=== PATIENT | female | born 1940 | race African-American/Black ===

== ENCOUNTER → 2018-03-24 | Outpatient (CLI) | payer OTHER, MEDICARE ==
[~2018-03-24] VITALS: Ht 152.4 cm; Wt 61.2 kg
[~2018-03-24] MED LIST: ACETAMINOPHEN325 M1 PO; ALPRAZOLAM 0.0.25 M1 PO; AMBEREN; AMLODIPINE BESY10 MG; AMLODIPINE BESY10 MG PO; ATENOLOL 50 MG50 M1; ATENOLOL 50 MG50 M1 PO; CAL-MAG TABLET1 EACH; CALCIUM-MAGNES1 EAC5 PO; CHILDREN'S ASPI81 M1 PO; COLCHICINE 0.60.6 M1; COLCHICINE 0.60.6 M1 PO; COLCHICINE 0.60.6 M2; DESYREL50 MG; DESYREL50 MG PO; DURAGESIC1 EAC1 TRANSDERM; ENALAPRIL MALEA20 MG; ENALAPRIL MALEA20 MG PO; FERRO-TIME325 MG PO; FERROUS GLUCON325 M4; FISH OIL 1,001000 MG; FISH OIL 1,2001 EAC3 PO; FISHOIL PO; FLEXERIL PO; FOLIC ACID; FOLIC ACID 40400 MC1 PO; FOSAMAX 70 MG T70 MG PO; GABAPENTIN 100100 MG PO; GEMFIBROZIL 60600 MG; GEMFIBROZIL 60600 MG PO; HYDROCODON-ACE1 EACH PO; HYDROXYZINE HCL25 M1; HYDROXYZINE HCL25 M1 PO; KLONOPIN0.5 MG PO; KLOR-CON 1010 MEQ PO; LEVOTHROID; LEVOTHROID PO; LORTAB 5 MG/5001 TA1 PO; LUTEIN20 MG; LUTEIN20 MG PO; LYRICA 50 MG50 MG PO; MILLIPRED DP5 MG; NORTRIPTYLINE H25 M3 PO; ODORLESS GARLI500 MG; ODORLESS GARLI500 MG PO; OSTEO BIFLEX PO; OXYCODONE-ACET1 EAC2 PO; PERCOCET 10-321 EACH PO; PLAVIX 75 MG TA75 M1 PO; POTASSIUM; POTASSIUM GLUCONATE PO; PREDNISONE 5 MG5 M1 PO; PROBENECID500 MG; PROBENECID500 MG PO; QUININE PO; ROXICODONE15 M1 PO; TUMS PO; VITAMIN C + RO500 MG; VITAMIN D1000 UNI1 PO; VITAMIN D400 UNI1; VITAMIN E400 UNIT PO; VITAMINC500 PO; XANAX 0.25 MG0.25 MG; [UNRECOGNIZED DRUG - OTHER] PO
--- NOTE | ~2018-03-24 | CRIT ---
[facility] [place] [address] CRITICAL CARE NOTE Name: HENRY ROMERO DECEMBER Room #: REG FILIBERTO Toro.Jinny.#: [id number] Admission: 03/24/18 Attend Phys: Matt Velazquez MD Discharge: Date of : 36 Report #: [id number] THIS REPORT FOR: //name// CC: Darrel Velazqeuz DATE OF SERVICE: 03/24/2018 HISTORY OF PRESENT ILLNESS: The patient is now at [facility]. She was seen previously at [facility]. She has spoken with the neurosurgeons and they have recommended to her that she consider spinal cord stimulation. She is here today to discuss the procedure, potential benefits, risks and complications. The patient has significant kyphoscoliosis. She has had 2 previous lumbar surgeries and has had kyphoplasty. In addition, she suffers from comorbidities of coronary artery disease and has 2 stents placed and has undergone angioplasty as recently as 2018. She complains of daily pain that is extremely severe, 9/10, sharp, stabbing, burning, cramping, radiating through her mid back and then into her legs. She states that the worst pain that she has is the inner legs and her anterior thighs and she has difficulty with any movement or standing. It is alleviated by forward bending and she has taken some medication with modest relief. She has had epidural injections performed with also limited improvement. MEDICATIONS: Reviewed and reconciled. She is on a number of centrally acting medications, which is concerning for age including oxycodone 1 tablet every 4-6 hours, Lyrica, nortriptyline, gabapentin, clonazepam, alprazolam in addition to her many other medications for coronary artery disease and other conditions. One hope is that she will be able to taper off of some of her pain medications if an interventional technique is achieved. REVIEW OF SYSTEMS: Positive for blurred vision, shortness of breath, loss of appetite, weight loss, kidney stones, numbness, tingling and pain in the lower extremities, nervousness and anxiety. PHYSICAL EXAMINATION: NEUROMUSCULOSKELETAL: The patient is alert and oriented. She has a walker with her today. She is at fall risk. She moves from standing position and there is a marked kyphoscoliotic spine. She is able to ambulate but is nearly bent over. Her spine has levoscoliosis with rotation. There is tenderness across the entire spine from mid scapular region all the way down through the lumbosacral region. Straight leg raising is positive bilaterally, reproducing pain in the anterior thigh. [address] [address] CRITICAL CARE NOTE Name: HENRY ROMERO DECEMBER Room #: REG [facility].R.#: [id number] Admission: 03/24/18 Attend Phys: Matt Velazquez MD Discharge: Date of : 36 Report #: [id number] CHEST: Clear. CARDIAC: Rhythm is regular. ABDOMEN: Soft. IMPRESSION: 1. Intractable low back pain with marked kyphoscoliosis. 2. Lumbar radiculopathy, bilateral L4-L5 distribution. 3. Coronary artery disease. 4. Peripheral vascular disease. RECOMMENDATIONS: I think she is only a fair candidate for spinal cord stimulation. I also would be reluctant to place an intrathecal pump. I have talked to the patient and her daughter about possibly continuing with medication, which would be the most flexible and least complicated route to manage her chronic pain. I have explained that even in the best circumstances even implantable devices such as intrathecal pumps and spinal cord stimulators provide only partial relief and may not treat all of the pain that she has. She should not create too much hope or expectation that by simply performing an implantable device surgery that her life will be markedly altered. I have allowed that there are some patients who have had remarkable improvement following placement of spinal cord stimulation and have been able to taper off of medications, one of her goals. We will proceed with the preauthorization process. Because of her spinal rotational deformity, placement of a trial lead may even be challenging. Once we have received preauthorization, I will proceed with placement of a trial lead and we will see how she responds. Risks of lead placement included failure to position the lead properly, spinal fluid leak, worsening of pain, bleeding and other complications. She was given information regarding the Cardiac Conceptsis system, which is the smallest IPG currently on the market, which will allow for high frequencies above 1000 Hz as well as lower frequencies. It is an MRI safe and compatible system as well. Followup visit is planned in the Pain Clinic for a trial once we have received preauthorization. By: [id number] Matt Velazquez MD /nt
[2018-03-24 13:22] VITALS: BP 127/55
== END ==
LOC: PAIN 06:17
DX: M41.86 Other forms of scoliosis, lumbar region (principal); M54.16 Radiculopathy, lumbar region; I25.10 Atherosclerotic heart disease of native coronary artery without angina pectoris; I73.9 Peripheral vascular disease, unspecified

== ENCOUNTER → 2018-08-19 | Outpatient (CLI) | payer OTHER, MEDICARE ==
[~2018-08-19] VITALS: Ht 147.3 cm; Wt 59.4 kg
[~2018-08-19] MED LIST changes: +FENTANYL1 EAC2 TRANSDERM
--- NOTE | ~2018-08-19 | HPC ---
[facility] [address] [place] [address] PAIN MANAGEMENT CONSULTATION Name: HENRY ROMERO Room #: REG [facility] M..#: [id number] Admission: 08/19/18 Attend Phys: Matt Velazquez MD Discharge: Date of : 38 Report #: [id number] THIS REPORT FOR: //name// CC: Brennen Greco MD DATE OF SERVICE: 08/19/2018 CHIEF COMPLAINT: Low back pain with radiation into both legs. HISTORY OF PRESENT ILLNESS: The patient is here today with her niece. We tried to place a spinal cord stimulator lead without success in April due to her marked degenerative disease. She was placed on medication. There was some confusion about the orders. We were very clear and written orders were given to stop her Lyrica and gabapentin, but she continued them while on fentanyl. This led to some dizziness, lightheadedness and probably overmedication. She stopped the fentanyl patches. She says that she stopped the gabapentin, but on her PDMP, it shows that she just recently was delivered 270 gabapentin 300 mg tablets. I have given her instructions again on backing off on these medicines due to the dizziness that she experiences, but it is hard to know how much of the information, both verbal and written that we provide for her in the office makes it to home and with her followup. Today, she complains of pain mostly down both legs. It follows the posterior lateral aspect of legs and she has pain across the lumbosacral segment as well. She has complaints of pain mostly in the back during the exam. She has a history of kyphoscoliosis and has been treated with kyphoplasty at L1-L2, I believe. PQRS REVIEW: 1. Positive for osteoarthritis of the hips, knees and shoulders. She has spondylosis as well. 2. Her BMI is 27.4. 3. VITAL SIGNS: Blood pressure 138/57, heart rate 69. 4. Pain intensity 9/10 on verbal scale. 5. She is, in my opinion a fall risk, although she reports that she has not fallen in the last 3 months and does not need help standing or walking. 6. She is on no blood thinners. 7. History of hypertension, under treatment by primary care physician, Dr. Brennen Madrigal. All medications have been reviewed and reconciled. 8. Opioid agreement, no. 9. She is considered low risk for addiction. 10. Functional assessment tool is high at 60/70, suggesting much of her [facility] [address] [place] [address] PAIN MANAGEMENT CONSULTATION Name: HENRY ROMERO Room #: REG [facility]#: [id number] Admission: 08/19/18 Attend Phys: Matt Velazquez MD Discharge: Date of : 38 Report #: [id number] activity is affected by pain. 11. She is a former tobacco user. Does not smoke at this time. Drinks about half a beer every day! PHYSICAL EXAMINATION: GENERAL: This is a feisty 78-year-old female. MUSCULOSKELETAL: She is indeed able to move from sitting to standing, walks with a broad-based gait. She has pain across the lumbosacral segment and groans and moans when you palpate across the area of the lumbosacral region. Straight leg raising is positive for pain radiating down the posterior aspect of both legs. Generalized weakness is noted in the lower extremities. IMPRESSION: 1. Chronic intractable low back pain with radiculopathy. 2. Failure of spinal cord stimulation trial. 3. Marked kyphoscoliosis. 4. Coronary artery disease. 5. Peripheral vascular disease. 6. Management of high-risk medications. PLAN: I would like to avoid any additional medication. I am just not certain how she will take it and I am worried about a fall for this is 78-year-old female with a history of osteoporotic compression fractures. An epidural steroid injection was offered and reviewed the risks and benefits. She is anxious to proceed. PROCEDURE: She was taken to the fluoroscopic suite for the treatment. She was placed prone. She was anesthetized over L4-L5 and a 22-gauge needle advanced at first attempt in the epidural space with loss of resistance technique. There was no blood or CSF aspirated. One mL of Omnipaque injected. Good spread of dye observed into the epidural space, followed by 3 mL of 0.5% lidocaine. She tolerated the procedure well and was taken to the recovery room and reported a pain score of 0 at discharge. Followup visit in the future as needed for further injections. By: [id number] Matt Velazquez MD /nt
[2018-08-19 10:54] VITALS: BP 138/57
== END | disposition home or self-care (01) ==
LOC: PAIN 10:28
DX: M54.16 Radiculopathy, lumbar region (principal); G89.29 Other chronic pain; M96.1 Postlaminectomy syndrome, not elsewhere classified; M19.90 Unspecified osteoarthritis, unspecified site; I10 Essential (primary) hypertension; I25.10 Atherosclerotic heart disease of native coronary artery without angina pectoris; I73.9 Peripheral vascular disease, unspecified; Z79.891 Long term (current) use of opiate analgesic; Z87.891 Personal history of nicotine dependence; Z87.19 Personal history of other diseases of the digestive system; Z79.82 Long term (current) use of aspirin

== ENCOUNTER → 2019-01-12 | Outpatient (CLI) | payer OTHER, MEDICARE ==
[~2019-01-12] VITALS: Ht 147.3 cm; Wt 53.6 kg
[~2019-01-12] MED LIST changes: +OXYCODONE-ACET1 EACH PO
[2019-01-12 11:10] VITALS: BP 164/79
--- NOTE | 2019-01-12 11:45 | NUR ---
Pain Clinic Assessment: 1. History of Osteoarthritis: back all over History of Rheumatoid Arthritis: none 2. Height: 4 ft. 10 in. 147.3 cm. Weight: 118.2 lb. oz. 53.615 kg. Patient's BMI: 24.7 3. Vital Signs: BP: 164/79 Pulse: 83 Resp: 14 Temp: 02 Sat: 99 ECG Mon: 4. Pain Intensity: 8 5. Fall Risk: Dizziness: N Needs help standing or walking: Y Fallen in the last 3 months: N Fall risk comments: 6. Patient on Blood Thinner: None 7. History of Hypertension: Y 8. Opioid Therapy greater than 6 weeks: N Opiate Contract Signed: 9. Risk Assessment Tool Provided: low risk 10. Functional Assessment Tool: 60/70 11. Recreational Drug Use: Never Drug Type: Tobacco Use: Former Smoker Tobacco Type: Amount or Packs/day: How Many Years: Alcohol Use: Yes Frequency: Quant:
== END | disposition home or self-care (01) ==
LOC: PAIN 06:53
DX: M54.16 Radiculopathy, lumbar region (principal); G89.29 Other chronic pain; Z87.891 Personal history of nicotine dependence; Z88.0 Allergy status to penicillin; Z88.8 Allergy status to other drugs, medicaments and biological substances; Z79.899 Other long term (current) drug therapy; Z98.890 Other specified postprocedural states

== ENCOUNTER → 2019-04-06 | Outpatient (CLI) | payer OTHER ==
[~2019-04-06] VITALS: Ht 147.3 cm; Wt 51.7 kg
[2019-04-06 13:42] VITALS: BP 181/91
--- NOTE | 2019-04-06 14:13 | NUR ---
Pain Clinic Assessment: 1. History of Osteoarthritis: back all over History of Rheumatoid Arthritis: none 2. Height: 4 ft. 10 in. 147.3 cm. Weight: 114.0 lb. oz. 51.710 kg. Patient's BMI: 23.8 3. Vital Signs: BP: 181/91 Pulse: 71 Resp: 14 Temp: 02 Sat: 100 ECG Mon: 4. Pain Intensity: 10 5. Fall Risk: Dizziness: N Needs help standing or walking: Y Fallen in the last 3 months: N Fall risk comments: 6. Patient on Blood Thinner: None 7. History of Hypertension: Y 8. Opioid Therapy greater than 6 weeks: N Opiate Contract Signed: 9. Risk Assessment Tool Provided: low risk 10. Functional Assessment Tool: 60/70 11. Recreational Drug Use: Never Drug Type: Tobacco Use: Former Smoker Tobacco Type: Amount or Packs/day: How Many Years: Alcohol Use: Yes Frequency: Quant:
--- NOTE | 2019-04-13 16:33 | HPC ---
[facility] [place] [address] PAIN MANAGEMENT CONSULTATION Name: HENRY ROMERO Room #: REG FILIBERTO Admission: 04/06/19 Attend Phys: Matt Velazquez MD Discharge: Date of : 38 Report #: [id number] THIS REPORT FOR: //name// CC: Brennen Velazquez DATE OF SERVICE: 04/06/2019 Followup visit for severe degenerative spine disease, scoliosis, kyphosis, lumbar radiculopathy and intractable pain. The patient is here today with family member. She reports pain is severe with all activities, walking and standing. She has had only minimal relief from oxycodone, gabapentin. Injections have not been helpful. We have added antidepressant, nortriptyline, going outside of the Beers recommendations because of her misery. She has not responded favorably to this medication either. She failed the spinal cord stimulator trial. We were unable to enter the spine to place the leads. PQRS REVIEW: 1. History of diffuse osteoarthritis and spondylosis of the lumbar spine. 2. BMI 24.7. 3. Vital signs; 164/79, heart rate 83, respirations 14. 4. Pain intensity 8/10. 5. She is a fall risk. She needs help standing and walking. She walks, bent over at the waist. 6. She is on no blood thinners. 7. She has a history of hypertension, under treatment. All medications were reviewed and reconciled. 8. She is on opioid medications and has signed an opioid agreement. We reviewed the terms of that agreement and the importance of safeguarding all medications. 9. She is considered at low risk for addiction by the opioid risk tool. 10. Functional assessment tool 60/70 suggesting that her ability to function with her pain is quite low. 11. She denies use of tobacco, but still does drink alcohol on occasion in a social setting. She does not drink heavily, but uses it in some ways as medication. PHYSICAL EXAMINATION: VITAL SIGNS: As noted above. She is pleasant, but complains bitterly of pain. She can move from sitting to standing position, but her spine is markedly deformed with curvature and rotation throughout the thoracolumbar region. She has tenderness throughout her mid back and lower back. The majority of her [address] [address] PAIN MANAGEMENT CONSULTATION Name: HENRY ROMERO Room #: REG [facility].#: [id number] Admission: 04/06/19 Attend Phys: Matt Velazquez MD Discharge: Date of : 38 Report #: [id number] kyphotic changes are in the upper lumbar region where she has had compression fractures treated by kyphoplasty. She is able to walk with walker and assistance. Her gait is markedly antalgic. She has bilateral straight leg raising discomfort. CARDIOVASCULAR: Cardiac rhythm is regular with no audible murmur. PULMONARY: Chest is clear to auscultation. IMPRESSION: Chronic low back pain due to marked degenerative changes of the lumbar spine. Multiple compression fractures. Multiple levels of stenosis and neural foraminal narrowing. RECOMMENDATIONS: I do not believe that she is a good candidate for additional injections. She has failed nearly every procedure we have attempted. We have tried medication management and I would like to transition her to Butrans initiating 5 mcg patches q.7 days. There are numerous reasons why Butrans may be an effective medication to use in an elderly population and I have decided an excellent article to the patient and her niece from that July issue of supportive oncology in 2011. This outlines reasons for considering buprenorphine is a frontline analgesic in the management of pain. We will follow up hopefully we can get this covered. Followup visit planned by phone. If she is doing well at this dose, I will allow her daughter to come pick that up. <ELECTRONICALLY SIGNED> By: Matt Velazquez MD 04/13/19 1633 [id number] [id number] Matt Velazquez MD /nt
== END ==
LOC: PAIN 07:00
DX: M47.26 Other spondylosis with radiculopathy, lumbar region (principal); M41.86 Other forms of scoliosis, lumbar region; M51.16 Intervertebral disc disorders with radiculopathy, lumbar region; M48.062 Spinal stenosis, lumbar region with neurogenic claudication

== ENCOUNTER → 2019-05-08 | Outpatient (CLI) | payer OTHER ==
[~2019-05-08] VITALS: Ht 147.3 cm; Wt 50.2 kg
[~2019-05-08] MED LIST changes: +CYCLOBENZAPRINE5 MG PO
--- NOTE | ~2019-05-08 | HPC ---
[facility] [place] [address] [place] [address] PAIN MANAGEMENT CONSULTATION Name: HENRY ROMERO Room #: REG FILIBERTO Lawanda.#: [id number] Admission: 05/08/19 ������������������ Attend Phys: Matt Velazquez MD Discharge: ������������������ Date of : 38 Report #: [id number] THIS REPORT FOR: //name// CC: KUN Velazquez DATE OF SERVICE: 05/08/2019 Followup visit for severe degenerative spine disease with scoliosis and intractable pain. The patient is here today in the pain clinic for an epidural injection. She continues to report severe daily pain that radiates from her low back through her flank and into her legs. She has difficulty with walking and ambulation. She has been on Butrans patches, but does not feel that they have been helpful. She will continue to follow up with Dr. Madrigal. PHYSICAL EXAMINATION: Blood pressure is 131/63, heart rate 70, respirations 14. She sits in a chair, bending over at the waist. She has difficulty with sitting up straight due to the scoliotic change in pain. When she extends her spine, her pain score is 10/10. Her chest is clear. Her cardiac rhythm is regular. Marked rotational curvature and scoliosis is noted of the thoracolumbar spine. There is marked tenderness across the lumbosacral segment. Bilateral straight leg raising discomfort. IMPRESSION: Chronic intractable low back pain with radiculopathy. RECOMMENDATION: Epidural steroid injection L4-L5 under fluoroscopic guidance. PROCEDURE: She was taken to fluoroscopic suite, placed prone, skin prepped with ChloraPrep. Skin was anesthetized over the L4-L5 interspace. A 20-gauge Tuohy epidural needle advanced in the epidural space with loss of resistance technique. There was no blood or CSF aspirated. A 1 mL of Omnipaque was injected. Good spread of dye observed into the epidural space. It was then followed by 3 mL of 0.5% lidocaine mixed with 10 mg of dexamethasone. She tolerated the procedure well and was observed for a short time and discharged. Little improvement was seen unfortunately. We hope that she will see benefit over the course of the next several days as often occurs following the epidural injection. ��������������������������������������������� ���������������������������������������� By: ��������������������������������������������� [id number] Matt Velazquez MD /nt
[2019-05-08 14:02] VITALS: BP 131/63
--- NOTE | 2019-05-08 14:21 | NUR ---
Pain Clinic Assessment: 1. History of Osteoarthritis: back hands History of Rheumatoid Arthritis: none 2. Height: 4 ft. 10 in. 147.3 cm. Weight: 110.6 lb. oz. 50.168 kg. Patient's BMI: 23.1 3. Vital Signs: BP: 131/63 Pulse: 70 Resp: 14 Temp: 02 Sat: 96 ECG Mon: 4. Pain Intensity: 10 5. Fall Risk: Dizziness: N Needs help standing or walking: Y Fallen in the last 3 months: N Fall risk comments: 6. Patient on Blood Thinner: None 7. History of Hypertension: Y 8. Opioid Therapy greater than 6 weeks: N Opiate Contract Signed: 9. Risk Assessment Tool Provided: low risk 10. Functional Assessment Tool: 60/70 11. Recreational Drug Use: Never Drug Type: Tobacco Use: Former Smoker Tobacco Type: Amount or Packs/day: How Many Years: Alcohol Use: Yes Frequency: Daily Quant: 1 beer
== END | disposition home or self-care (01) ==
LOC: PAIN 06:48
DX: M54.16 Radiculopathy, lumbar region (principal); G89.29 Other chronic pain; Z87.891 Personal history of nicotine dependence; Z91.040 Latex allergy status; Z88.0 Allergy status to penicillin; Z88.8 Allergy status to other drugs, medicaments and biological substances; Z79.899 Other long term (current) drug therapy; Z98.890 Other specified postprocedural states

== ENCOUNTER 2019-09-15 21:38 | Inpatient (IN) | payer OTHER ==
[~2019-09-15] VITALS: Ht 129.5 cm; Wt 50.3 kg
[2019-09-15 21:39] VITALS: BP 122/72
[2019-09-15 23:05] LABS: ANION GAP 14 mmol/L (7-16); BUN 34 mg/dL (7-18); CHLORIDE 100 mmol/L (98-107); CO2 22 mmol/L (21-32); GLUCOSE 72 mg/dL (74-106); POTASSIUM 4.8 mmol/L (3.5-5.1); SODIUM 136 mmol/L (136-145)
[2019-09-15 23:11] LABS: URINE BILIRUBIN NEGATIVE (Negative); URINE BLOOD NEGATIVE (Negative); URINE CLARITY CLEAR; URINE COLOR YELLOW; URINE GLUCOSE-RANDOM* NEGATIVE (Negative); URINE KETONES NEGATIVE (Negative); URINE NITRITE-REFLEX NEGATIVE (Negative); URINE PROTEIN (DIPSTICK) NEGATIVE (Negative); URINE UROBILINOGEN 0.2 E.U./dl (0.2-1.0)
[2019-09-15 23:12] LABS: URINE LEUKOCYTES-REFLEX 1+ (Negative)
[2019-09-15 23:13] LABS: TROPONIN-I <0.06 ng/mL (<0.06)
[2019-09-15 23:26] LABS: CASTS None Seen /LPF (None Seen); MUCUS 0-3 Light strn/LPF (None Seen); SQUAMOUS >10 Many /LPF (0-3)
[2019-09-15 23:27] LABS: BACTERIA-REFLEX 1-9 Few /HPF (None Seen); CRYSTALS None Seen /LPF (None Seen); URIC ACID CRYSTALS 4-10 Moderate /LPF (None Seen); URINE RBC None Seen /HPF (0-2); URINE WBC-REFLEX 6-15 Few /HPF (0-5)
[2019-09-16 00:13] LABS: CALCIUM 11.2 mg/dL (8.5-10.1); PHOSPHORUS 3.5 mg/dL (2.5-4.9)
[2019-09-16 00:15] LABS: ALBUMIN 2.4 g/dL (3.4-5.0); DIRECT BILIRUBIN < 0.1 mg/dL (<0.1-0.2); SGOT 28 U/L (15-37); SGPT 12 U/L (30-65); TOTAL BILIRUBIN 0.3 mg/dL (<0.1-1.0); TOTAL PROTEIN 8.2 g/dL (6.4-8.2)
[2019-09-16 00:40] LABS: HEMATOCRIT 26.4 % (37.0-47.0); HEMOGLOBIN 8.2 gm/dL (12.0-15.0); MCH 21.4 pg (26.0-34.0); MCHC 30.9 g/dL (28.0-37.0); MCV 69.2 fL (80.0-100.0); PLATELET COUNT 459 thou/uL (150-400); RBC 3.82 mil/uL (4.20-5.00); RDW 16.3 % (10.5-14.5); WBC 10.9 thou/uL (4.0-11.0)
[2019-09-16 01:39] LABS: ABSOLUTE NEUTROPHILS 8.3 thou/uL (1.4-8.2); ANISOCYTOSIS 1+; HYPOCHROMASIA 2+; MICROCYTES 2+
[2019-09-16 02:37] VITALS: BP 137/50
[2019-09-16 03:15] VITALS: BP 137/50
[2019-09-16 05:24] LABS: IRON 18 ug/dL (50-170)
[2019-09-16 05:28] LABS: % SATURATION 12 % (20-39); TIBC 155 ug/dL (250-450)
[2019-09-16] MEDS ORDERED: VITAMIN D32000 UNIT PO (05:31)
[2019-09-16 05:40] VITALS: BP 166/78
[2019-09-16 06:26] LABS: FOLIC ACID 49.6 ng/mL (8.6-58.9)
--- NOTE | 2019-09-16 06:40 | NUR ---
PT ARRIVED TO UNIT APPROX 0340, ADMISSION AND ASSESSMENT COMPLETED. PT ALERT TO HERSELF, PLACE, AND DAY, BUT POOR HISTORIAN AND FLIGHTY WITH CONVERSATION, JUMPING FROM TOPIC TO TOPIC. REPORTS CHRONIC PAIN IN LEFT SHOULDER AND BACK, BUT NEWER PAIN IN STERNUM AND BELOW BREASTS THAT IS WORSE WITH PRESSURE. DENIES NAUSEA, SOB, OR DIZZINESS. IVF STARTED. FALL PRECAUTIONS IN PLACE. REPORTS GENERALLY POOR APPETITE AND WEIGHT LOSS OVER THE LAST COUPLE OF MONTHS. NO OTHER CONCERNS, WILL CONTINUE TO MONITOR.
[2019-09-16 09:36] LABS: ALBUMIN 2.1 g/dL (3.4-5.0); DIRECT BILIRUBIN < 0.1 mg/dL (<0.1-0.2); SGOT 22 U/L (15-37); SGPT 9 U/L (30-65); TOTAL BILIRUBIN 0.2 mg/dL (<0.1-1.0); TOTAL PROTEIN 6.1 g/dL (6.4-8.2)
[2019-09-16 12:01] VITALS: BP 174/58
[2019-09-16 12:28] LABS: CALCIUM 10.2 mg/dL (8.5-10.1); CREATININE 1.4 mg/dL (0.6-1.0); POTASSIUM 4.1 mmol/L (3.5-5.1)
[2019-09-16 15:29] VITALS: BP 148/50
--- NOTE | 2019-09-16 18:24 | NUR ---
ASSUMED CARE OF PT AT 0700. MORE ORIENTED. NO COMPLAINTS BESIDES SHOULDER PAIN. CT CHEST SHOWING MASSES - PULM TO HAVE MEETING WITH FAMILY IN MORNING. HYPERTENSION TREATED WITH MEDS. CALLS OUT APPROPRIATELY.
[2019-09-16 19:48] VITALS: BP 142/70
[2019-09-17 04:15] VITALS: BP 166/83
--- NOTE | 2019-09-17 04:29 | NUR ---
Patient making slow progress towards outcome goals. Improved mentation but forgets to call for assistance to bathroom. Vital signs and rhythm stable. High fall risks, fall precautions in place. IVfluids infusing,
[2019-09-17 04:56] LABS: HEMOGLOBIN 7.6 gm/dL (12.0-15.0); MCHC 31.8 g/dL (28.0-37.0); MCV 69.2 fL (80.0-100.0); RBC 3.47 mil/uL (4.20-5.00); RDW 15.9 % (10.5-14.5)
[2019-09-17 05:06] LABS: CALCIUM 9.6 mg/dL (8.5-10.1); CREATININE 1.1 mg/dL (0.6-1.0); POTASSIUM 3.6 mmol/L (3.5-5.1)
[2019-09-17 07:58] VITALS: BP 160/76
[2019-09-17 16:29] VITALS: BP 135/53; BP 136/45
--- NOTE | 2019-09-17 18:32 | NUR ---
ASSSUMED PATIENT CARE AT 0700 . A/O X4. CARLOS ASSISTED TO BSC. WILL NPO AFTER MIDNIGHT TO HAVE LUNG BIOPSY IN AM.
[2019-09-17 19:19] VITALS: BP 149/73
[2019-09-18] VITALS (9 sets, daily range): BP systolic 149–172; BP diastolic 60–80
--- NOTE | 2019-09-18 05:21 | NUR ---
PT IS A/OX4 AND IS STANDBY ASSIST. PT HAS BEEN NPO SINCE 2399 AND IS SCHEDULED FOR A LUNG BIOPSY 09/18. TELE MONITOR SHOWS SR AND A BBB. FOLLOWING POC WITH IVF GTT. PT STATES NO PAIN NOR N/V. HOURLY ROUNDING.
[2019-09-18 08:41] LABS: CALCIUM 8.7 mg/dL (8.5-10.1)
[2019-09-18 08:47] LABS: HEMATOCRIT 23.3 % (37.0-47.0); HEMOGLOBIN 7.4 gm/dL (12.0-15.0); MCH 21.7 pg (26.0-34.0); MCHC 31.7 g/dL (28.0-37.0); MCV 68.5 fL (80.0-100.0); RBC 3.41 mil/uL (4.20-5.00); WBC 8.4 thou/uL (4.0-11.0)
[2019-09-18 08:49] LABS: INR 1.2; PROTIME 11.9 Seconds (9.3-11.4)
[2019-09-18 08:53] LABS: POTASSIUM 2.9 mmol/L (3.5-5.1)
--- NOTE | 2019-09-18 14:48 | EKG ---
[address] [address] ELECTROCARDIOGRAM REPORT Name: HENRY ROMERO BRAGA Room #: 364-P ADM IN M.R.#: [id number] Admission: 09/16/19 Attend Phys: Tomy Sorto MD Discharge: Date of : 36 Report #: [id number] THIS REPORT FOR: //name// [facility] ED Test Date: 2019-09-15 Test Time: 22:14:51 Pat Name: HENRY ROMERO Department: Room: 364 Gender: F Network Systems Analyst: : 1940 Requested By: Med Brown Order Number: [id number] MD: Rony Melton Measurements Intervals [place] Rate: 74 P: 15 IA: 201 QRS: -3 QRSD: 89 T: 23 QT: 379 QTc: 421 Interpretive Statements Sinus rhythm Inferior infarct, old Compared to ECG 10/21/2010 20:08:54 Myocardial infarct finding now present First degree AV block no longer present Electronically Signed On 09-18-2019 14:47:31 ADVENTURE THERAPIST by Rony Melton [email or web address] <ELECTRONICALLY SIGNED> By: Rony Melton MD 09/18/19 1442 2214 Rony Melton MD /GAEL
--- NOTE | 2019-09-18 16:00 | NUR ---
INITIAL ASSESSMENT: Received consult due to pt with new lung lesions. SW reviewed chart and spoke with nursing and attending physician. Pt was admitted from home due to altered mental status. Pt with recent weight loss and new lung mass. Pt to have lung bx today. SW met with pt at bedside. Introduced role of SW. Pt is alert/orientated x 4. Pt reports she lives at home alone. Pt has family that are able to assist her as needed. Pt states that she has a cane and walker. Pt has used HH in the past, but unsure of provider. Pt's PCP is Dr. Madrigal. Pt states that her plan is to return home. PT/OT ordered today to evaluate pt for discharge needs. SW is following to assist as needed with discharge planning.
--- NOTE | 2019-09-18 16:36 | NUR ---
ASSUMED CARE OF PT AT 0700. PT AOX3 IN NO ACUTE DISTRESS. S/P BIOPSY IN IR. REFUSING TURKEY SANDWICH OR GALLEY FOODS UPON RETURN - WILL WAIT UNTIL DINNER SHE SAYS, BUT NOT HAPPY. UP W/ SBA TO BSC. K+ CRITICALLY LOW AT 2.9 - REPLACED PER PROTOCOL. STATUS CHANGED MED/SURG. WILL CONT TO MONITOR.
[2019-09-19 04:56] VITALS: BP 184/90
--- NOTE | 2019-09-19 05:46 | NUR ---
PT VSS AND NO COMPLAINTS OF PAIN. PT UP TO BSC AND STANDBY ASSIST. PT HAS BEEN MOVED TO MED SURG AND SHOULD TRANSFER TO THE 4TH FLOOR THIS AM. HOURLY ROUNDING.
[2019-09-19 08:36] VITALS: BP 178/84
[2019-09-19 09:14] VITALS: BP 149/75
[2019-09-19 14:52] VITALS: BP 141/61
--- NOTE | 2019-09-19 17:08 | NUR ---
SW reviewed chart and spoke with nursing and attending physician. Pt was transferred to from 3W earlier today. Pt to have MRI of the head and CT of Abd/Pelvis per oncology. Plan is for pt to discharge home soon. MAURICIO is following to assist as needed with discharge planning.
[2019-09-19 19:49] VITALS: BP 138/64
--- NOTE | 2019-09-19 20:23 | NUR ---
Received pt from [facility], [facility] [place]. MRI and CT done this am. Consent signed for procedure rakan am EGD with colonoscopy. Pt would have bouts of confusion and forgetfulness, mood swings that would be on the negative side when visitors are present in the room. Fall precautions in place, POC followed no signs or verbalizations of distress have been noted, NPO post midnight, bowel prep to commence tonight, endorsed to the night nurse.
--- NOTE | 2019-09-20 01:12 | NUR ---
ASSSUMED CARE OF PT AT 1900HRS. PT AOX4 AND LETS NEEDS BE KNOWN. FALL PRECAUTION IN PLACE. PT STARTED BOWEL PREP THIS SHIFT. PT COMPLETED 75% OF BOWEL PREP AND STATES THAT SHE IS UNABLE TO DRINK MORE. PT HAD SEVERAL LOOSE BMS. PT REPORTED SOME PAIN AND WAS TREATED WITH PRN PAIN MEDS. PT WAS ABLE TO GET COMFORTABLE AND SLEEP PART OF THE SHIFT. VSS AND NO S/S OF ACUTE DISTRESS. WILL CONTINUE TO MONITOR.
[2019-09-20 07:43] VITALS: BP 150/66
[2019-09-20 11:56] LABS: HEMATOCRIT 24.1 % (37.0-47.0); HEMOGLOBIN 7.6 gm/dL (12.0-15.0); MCH 21.4 pg (26.0-34.0); MCHC 31.4 g/dL (28.0-37.0); MCV 68.2 fL (80.0-100.0); RBC 3.54 mil/uL (4.20-5.00); RDW 16.2 % (10.5-14.5); WBC 9.6 thou/uL (4.0-11.0)
[2019-09-20 12:03] LABS: CALCIUM 8.2 mg/dL (8.5-10.1); CREATININE 0.8 mg/dL (0.6-1.0)
[2019-09-20 12:10] LABS: POTASSIUM 2.7 mmol/L (3.5-5.1)
[2019-09-20 13:05] LABS: MAGNESIUM 1.2 mg/dL (1.8-2.4); PHOSPHORUS 2.8 mg/dL (2.5-4.9)
--- NOTE | 2019-09-20 13:43 | NUR ---
CARE TEAM INDICATED THAT PT IS TO HAVE EGD AND COLONOSCOPY TODAY. ANTICIPATE POSSIBLE DC TOMORROW. CM TO FOLLOW INDICATED WITH DC PLANNING.
[2019-09-20 13:51] VITALS: BP 165/74
--- NOTE | 2019-09-20 19:22 | NUR ---
Assumed pt care this am. bowel prep completed maintained on clear liquids til she was brought down for EGD and colonoscopy. Fall precautions in place, VS stable, IV was infiltrated thus changed by the IV team and placed on the left upper arm. Critiacal lab results called to MD, replacements made. POC followed, no signs or verbalizationbs of distress have been noted.
[2019-09-20 19:25] VITALS: BP 160/86
[2019-09-21 00:52] VITALS: BP 152/82
--- NOTE | 2019-09-21 02:18 | NUR ---
ASSUMED CARE OF PT AT 1900HRS. PT IS AOX4 AND LETS NEEDS BE KNOWN. FALL PRECAUTION IN PLACE. PT COMPLAINED OF PAIN AND PRN MEDS WERE GIVEN. ABX TREATMENT CONTINUED. PT WAS ABLE TO GET COMFORTABLE AND SLEEP PART OF THE SHIFT. VSS AND NO S/S OF ACUTE DISTRESS. WILL CONTINUE TO MONITOR.
--- NOTE | 2019-09-21 05:56 | P ---
[facility] [place] [address] PROCEDURE REPORT Name: HENRY ROMERO Room #: 462-P ADM IN M.R.#: [id number] Admission: 09/16/19 Attend Phys: Tomy Sorto MD Discharge: Date of : 36 Report #: [id number] THIS REPORT FOR: //name// CC: Tomy Sorto MD Brennen Leonardjose l This is a diagnostic colonoscopy. INDICATION FOR PROCEDURE: Evaluate thickened cecum and ascending colon on CT scan. The patient has a history of a newly diagnosed lung mass and pathology report is pending from biopsies. DESCRIPTION OF PROCEDURE: Informed consent for this procedure was obtained prior to the administration of any medication. The risks of the procedure, which include bleeding, perforation, infection, complications of the sedation and the possibility I could miss something have been explained to the patient and she has indicated her consent by signing. Propofol was slowly titrated before and during this procedure for a patient covered by the anesthesia service. The digital rectal exam was performed and no abnormalities were palpated. Then, the Olympus colonoscope was introduced through the anal sphincter and advanced under direct visualization to the terminal ileum. Findings are noted on withdrawal of the scope. The terminal ileal mucosa appears normal. The cecum appears normal. I do not identify an appendiceal orifice in the cecum, but I clearly identified the ileocecal valve. Ascending colon, normal mucosa. Retroflexed view in the ascending colon did not reveal any abnormalities. Hepatic flexure, normal mucosa. Transverse colon, normal mucosa. Splenic flexure, normal mucosa. Descending colon, normal mucosa. Sigmoid colon, multiple uncomplicated diverticula are noted in the sigmoid colon. There is also one diverticulum that has pus coming out of it and it is erythematous and edematous. This is an acute diverticulitis. Rectum, normal mucosa. Retroflexed view did not reveal any abnormalities. Scope was withdrawn. The patient went to the recovery area in stable condition. She tolerated the procedure well. IMPRESSION: Sigmoid diverticulosis and diverticulitis that appears to be acute. Other than that, normal colonoscopic exam to the terminal ileum. RECOMMENDATIONS: My recommendations were for her to start on antibiotics consisting of Cipro and Flagyl. [facility] [address] [place] [address] PROCEDURE REPORT Name: HENRY ROMERO Room #: 462-P [facility] IN .R.#: [id number] Admission: 09/16/19 Attend Phys: Tomy Sorto MD Discharge: Date of : 38 Report #: [id number] Thank you very much once again for allowing me to participate in her care. <ELECTRONICALLY SIGNED> By: Stella Lima DO 09/21/19 0556 1321 223 Stella Lima DO /nt
--- NOTE | 2019-09-21 05:56 | P ---
[facility] [place] [address] PROCEDURE REPORT Name: HENRY ROMERO Room #: 462-P ADM IN M.R.#: [id number] Admission: 09/16/19 Attend Phys: Tomy Sorto MD Discharge: Date of : 38 Report #: [id number] THIS REPORT FOR: //name// CC: [facility] DIAGNOSTIC ESOPHAGOGASTRODUODENOSCOPY In room 462, she is an inpatient and she is a patient of Dr. Tomy Sorto. INDICATION FOR PROCEDURE: Evaluate the sources of epigastric tenderness. The patient has a lung mass, pathology report and biopsy from this lung mass is pending. Informed consent for this procedure was obtained prior to the administration of any medication. The risks of the procedure, which include, but are not limited to, bleeding, perforation, infection, complications of sedation, and the possibility I could miss something were explained to the patient and she has indicated her consent by signing. Anesthesia kindly provided deep sedation for this procedure. With the patient in the left lateral decubitus position, the Olympus upper videoscope was introduced through the upper esophageal sphincter and advanced under direct visualization to the third portion of the duodenum. Findings are noted on withdrawal of the scope. The second portion of the duodenum appears normal throughout its entirety. Pylorus, normal mucosa. Antrum, normal mucosa. Incisura, normal mucosa. There is a slight scratch on the incisura from the scope that was obtained during the retroflexed view of the proximal stomach. The antrum itself appears normal. Body, normal mucosa. Cardia and fundus, normal mucosa. Retroflexed view did not reveal any further abnormalities. The scope was withdrawn into the esophagus. The Z-line is appropriately located at the top of the gastric folds and appears normal. The esophageal mucosa appears normal throughout its entirety. I did not see any source of or level of dysphagia. It is possible that perhaps some extrinsic compression from her lung mass might be causing some problems when she swallows some items, but I do not see anything grossly abnormal at this time. The scope was withdrawn. The patient was turned for a colonoscopy. IMPRESSION: Normal esophagogastroduodenoscopy to the third portion of duodenum. RECOMMENDATIONS: Proceed with colonoscopy at this time. [address] [address] PROCEDURE REPORT Name: HENRY ROMERO Room #: 462-P [facility] IN [place]#: [id number] Admission: 09/16/19 Attend Phys: Tomy Sorto MD Discharge: Date of : 38 Report #: [id number] Thank you very much once again for allowing me to participate in her care, Dr. Sorto. <ELECTRONICALLY SIGNED> By: Stella Lima DO 09/21/19 0556 1321 2147 Stella Lima, /nt
[2019-09-21 06:04] LABS: HEMATOCRIT 22.8 % (37.0-47.0); HEMOGLOBIN 7.1 gm/dL (12.0-15.0); MCH 21.5 pg (26.0-34.0); MCHC 31.3 g/dL (28.0-37.0); MCV 68.5 fL (80.0-100.0); RBC 3.32 mil/uL (4.20-5.00); RDW 16.1 % (10.5-14.5); WBC 9.2 thou/uL (4.0-11.0)
[2019-09-21 06:33] LABS: CALCIUM 8.1 mg/dL (8.5-10.1); CREATININE 0.8 mg/dL (0.6-1.0); MAGNESIUM 1.8 mg/dL (1.8-2.4); PHOSPHORUS 2.7 mg/dL (2.5-4.9); POTASSIUM 4.8 mmol/L (3.5-5.1)
[2019-09-21 07:20] VITALS: BP 148/66
[2019-09-21 09:20] LABS: HEMATOCRIT 24.9 % (37.0-47.0); HEMOGLOBIN 7.7 gm/dL (12.0-15.0); MCH 21.2 pg (26.0-34.0); MCHC 30.8 g/dL (28.0-37.0); RBC 3.6 mil/uL (4.20-5.00); RDW 16.1 % (10.5-14.5); WBC 11.1 thou/uL (4.0-11.0)
[2019-09-21] MEDS ORDERED: CIPRO250 M1 PO (13:00)
[2019-09-21] MEDS ORDERED: FLAGYL 250 MG250 MG PO (13:17)
[2019-09-21 14:15] VITALS: BP 148/66
--- NOTE | 2019-09-21 15:19 | NUR ---
CARE TEAM INDICATED THAT PT IS MEDICALLY STABLE TO DC HOME THIS DAY TO SELF CARE. NO OTHER CM INTERVENTION INDICATED. CASE CLOSED.
--- NOTE | 2019-09-21 16:40 | NUR ---
Assumed pt care this am, VS stable. Pt uses the commode with 1x standby assists. Hgb is at 7.7, seen by MD and Oncology. POC followed, SOB was noted when pt was dressing up witnessed by RT. Pt refused further consult and mentioned this is her norm at home and wants to leave now. IV removed, no pain was verbalized or noted. POC followed, DC instructions and prescriptions given.
--- NOTE | 2019-09-25 16:06 | PATH ---
[facility] [address] [place] [address] PATHOLOGY RPT PROCEDURE Name: SOILA BANSAL Room #: 462-P DIS IN M.R.#: [id number] Admission: 09/16/19 Date of : 36 Discharge: 09/21/19 Report #: [id number] Path Case #: [id number] [facility] Accession Number: [id number] . 01 Material submitted: . lung - RIGHT LOWER LOBE. Modifiers: right, lower . 01 Clinical history: . ROBER, hypercalcemia, new lung masses, confusion . 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 - No background lung tissue present within biopsy tissue. (IUV:pit 09/20/2019) QTP 09/20/2019 1303 Local . 02 Comment: Co-review: Dr. Alisa Cunningham (slide A1-9). . Findings of this case are conveyed to Dr. Tony Austin at approximately 11:19 am on 09/20/2019. (IUV:pit 09/20/2019) . 02 Addendum: . Special studies report received from [facility], [address] [place] [address], [address], [place], [address], on case [id number], labeled with their number [id number], dated 09/25/2019. . PD-L1 Immunohistochemistry Analysis . Body Site: Lung, right lower lobe, needle core biopsy Specimen Received: 1 paraffin block labeled [id number]. . Clinical History: Invasive moderately differentiated keratinizing squamous cell carcinoma. No background lung tissue present within biopsy tissue. . . Results Table PD-L1 - KEYTRUDA (R) Tumor Interpretation Proportion [id number] 1% Expression . . Reference Ranges PD-L1 protein expression is determined by using [place] [address] PATHOLOGY RPT PROCEDURE Name: SOILA BANSAL Room #: 462-P DIS IN M.R.#: [id number] Admission: 09/16/19 Date of : 38 Discharge: 09/21/19 Report #: [id number] Path Case #: [id number] (TPS), which is the percentage of at least 100 viable tumor cells showing complete or partial membrane staining at any intensity. . TPS less than 1%: No Expression . TPS greater than or equal to 1%: Expression - Eligible for KEYTRUDA (R) (pembrolizumab) monotherapy. . TPS greater than or equal to 50%: High Expression - Eligible for KEYTRUDA (R) (pembrolizumab) monotherapy. . Note: PD-L1 expression level TPS greater than or equal to 50% may be of interest but does not determine eligibility for KEYTRUDA (R) monotherapy. . . at [employer]. Karl Miller M.D. Pathologist . . Tests PD-L1 IHC Analysis . Intended Use: PD-L1, 22C3 pharmDx (TM) is FDA approved for in vitro diagnostic use as a qualitative immunohistochemical assay using Monoclonal Mouse Anti-PD-L1, Clone 22-C3 intended for use in the detection of PD-L1 in formalin-fixed paraffin-embedded (FFPE) non-small cell lung cancer (NSCLC) using the [employer] EnVision FLEX visualization system on [employer]. PD-L1 22C3 pharmDx (TM) is indicated as an aid in identifying NSCLC patients for treatment with KEYTRUDA (R) (pembrolizumab) monotherapy. See the KEYTRUDA (R) product label for specific clinical circumstances guiding PD-L1 testing. PD-L1, 22C3 pharmDx (TM) is a trademark of [employer], an [employer]. . . References: Yoni TS, Aly Y-L, Richy l, et al: Pembrolizumab versus chemotherapy for previously untreated, PD-L1 expressing, locally advanced or metastatic gsy-siwxb-rjld lung cancer (KEYNOTE-042): a radomised, open-label, controlled, phase 3 trial. Lancet 2018December 01; Online (66) 1-12. . Elton RS, Marilynn P, Yomaira D-W, et al: Pembrolizumab versus docetaxel for previously treated, PD-L1 positive, advanced qqm-twwsi-emmf lung cancer (KEYNOTE-010): a randomized controlled trial. Lancet 2014Aug 17; Online (35) 5713-0. . [address] [address] PATHOLOGY RPT PROCEDURE Name: SOILA BANSAL Room #: 462-P DIS IN M.R.#: [id number] Admission: 09/16/19 Date of : 38 Discharge: 09/21/19 Report #: [id number] Path Case #: [id number] Eli Garcia, Raquel R, et al: Pembrolizumab for the Treatment of Kvg-Stumw-Obrb Lung Cancer. N Engl J Med 2015 January 17; 372:8111-3938. . Please contact [facility] for additional references. . Disclaimer This Test was performed by [employer] at [address] [place] [address], [facility]. [facility] is a business unit of [employer] a wholly-owned subsidiary of [employer]. . . Any image(s) that accompany this report is/are a medical customer service representative image(s) only and should not be used to render a diagnosis. . This interpretation is contingent on the specimen and the clinical information received. . Known positive cells or tissues are employed with each test and examined to ensure positivity. Positive and negative internal controls, if present, react appropriately. . This assay has not been validated on decalcified tissues. Results should be interpreted with caution if this specimen was decalcified given the likelihood of decreased staining or false negativity on decalcified specimens. . This analysis is an adjunct to the evaluation of the referring physician and does not represent a final diagnosis. . The immunohistochemistry tests performed at [employer]. were validated on tissue fixed in 10% neutral buffered formalin. The performance characteristics of the tests performed on tissue processed in other fixatives is not known. . A complete copy of the report is on file. . Professional services performed by [employer] at [address], [place] [address]. Technical services performed by [employer] at [address], [place] [address]. . (JANETH 09/25/2019) . QMS/09/25/2019 Addendum Electronically Signed by Magaly Johnston MD, Pathologist . [address] [place] [address] PATHOLOGY RPT PROCEDURE Name: SOILA BANSAL Room #: 462-P DIS IN [facility]#: [id number] Admission: 09/16/19 Date of : 38 Discharge: 09/21/19 Report #: [id number] Path Case #: [id number] Electronically signed: . Magaly Johnston MD, Pathologist NPI- [id number] . 01 Gross description: . The specimen is received in formalin, labeled "Soila Bansal, right lower lobe chest biopsy". The specimen is additionally labeled on the requisition as, "R lower lobe lung biopsy". Received are several friable fragments of pale talley soft tissue measuring 0.5 x 0.4 x 0.1 cm in aggregate dimensions. The specimen is filtered and entirely submitted in cassette A1. (CAA; 09/19/2019) QAC/QAC 09/19/2019 1401 Local . 02 Pathologist provided ICD-10: C34.31 . 02 CPT . 597672 Specimen Comment: A courtesy copy of this report has been sent to [phone] Specimen Comment: Report sent to Performed at: [address], [place], [place] [id number] MD Misael Salinas MD Phone: [phone] Performed at: [address] [id number] MD Magaly Johnston MD Phone: [phone]
== END 2019-09-21 15:20 | disposition home or self-care (01) | DRG 180 ==
LOC: ER 21:38 → 4W 09-16 02:24 → 3W 09-16 02:24 → EROBS 09-16 02:24 → 3W 09-16 03:24 → 4W 09-19 09:11 → ENTRNSPT 09-21 15:10 → EDTRNSPTSTS 09-21 15:12 → 4W 09-21 15:20
PROVIDERS: Anesthesiology; Emergency Medicine; Internal Medicine; Nurse Practitioner Family; Radiology Vascular & Interventional Radiology; ADMIT Hospitalist
PROC: 0DJD8ZZ Inspection of Lower Intestinal Tract, Via Natural or Artificial Opening Endoscopic (ICD-10-PCS; principal; 2019-09-16)
PROC: 0DJ08ZZ Inspection of Upper Intestinal Tract, Via Natural or Artificial Opening Endoscopic (ICD-10-PCS; principal; 2019-09-16)
PROC: 0BBF3ZX Excision of Right Lower Lung Lobe, Percutaneous Approach, Diagnostic (ICD-10-PCS; 2019-09-18)
DX: C34.90 Malignant neoplasm of unspecified part of unspecified bronchus or lung (principal); G93.41 Metabolic encephalopathy; E43 Unspecified severe protein-calorie malnutrition; N17.0 Acute kidney failure with tubular necrosis; N39.0 Urinary tract infection, site not specified; K57.92 Diverticulitis of intestine, part unspecified, without perforation or abscess without bleeding; K92.1 Melena; J44.9 Chronic obstructive pulmonary disease, unspecified; R41.82 Altered mental status, unspecified; D50.9 Iron deficiency anemia, unspecified; E83.52 Hypercalcemia; M54.9 Dorsalgia, unspecified; K57.90 Diverticulosis of intestine, part unspecified, without perforation or abscess without bleeding; G89.4 Chronic pain syndrome; D53.9 Nutritional anemia, unspecified; I10 Essential (primary) hypertension; E78.5 Hyperlipidemia, unspecified; E03.9 Hypothyroidism, unspecified; M10.9 Gout, unspecified; M19.90 Unspecified osteoarthritis, unspecified site; E86.0 Dehydration; I25.10 Atherosclerotic heart disease of native coronary artery without angina pectoris; R63.4 Abnormal weight loss; E11.22 Type 2 diabetes mellitus with diabetic chronic kidney disease; M81.0 Age-related osteoporosis without current pathological fracture; K52.9 Noninfective gastroenteritis and colitis, unspecified; F32.9 Major depressive disorder, single episode, unspecified; Z68.30 Body mass index [BMI] 30.0-30.9, adult; Z95.820 Peripheral vascular angioplasty status with implants and grafts; Z90.710 Acquired absence of both cervix and uterus; Z90.89 Acquired absence of other organs; Z98.1 Arthrodesis status; Z95.5 Presence of coronary angioplasty implant and graft; Z79.82 Long term (current) use of aspirin; Z79.891 Long term (current) use of opiate analgesic; Z79.899 Other long term (current) drug therapy; Z88.1 Allergy status to other antibiotic agents; Z88.5 Allergy status to narcotic agent; Z88.0 Allergy status to penicillin; Z91.048 Other nonmedicinal substance allergy status; Z87.891 Personal history of nicotine dependence
CPT/HCPCS: 10047; 10779; 10879; 62110; 62900; 70005

== ENCOUNTER 2019-10-26 18:08 | Inpatient (IN) | payer OTHER ==
[~2019-10-26] VITALS: Ht 144.8 cm; Wt 41.5 kg
[~2019-10-26 18:08] MED LIST changes: +CIPRO250 M1 PO; +FLAGYL 250 MG250 MG PO; +VITAMIN D32000 UNIT PO
[2019-10-26 18:09] VITALS: BP 159/71
[2019-10-26 19:30] LABS: ABSOLUTE NEUTROPHILS 5.8 thou/uL (1.4-8.2); BASOPHILS 1.5 % (0.0-2.0); CREATININE 1.1 mg/dL (0.6-1.0); EOSINOPHILS 1.5 % (0.0-3.0); HEMATOCRIT 26.6 % (37.0-47.0); HEMOGLOBIN 8.2 gm/dL (12.0-15.0); LYMPHOCYTES 16.5 % (24.0-44.0); MCH 21.1 pg (26.0-34.0); MCV 68.1 fL (80.0-100.0); MONOCYTES 7.8 % (1.0-8.0); PLATELET COUNT 392 thou/uL (150-400); POLYS 72.7 % (36.0-66.0); POTASSIUM 3.5 mmol/L (3.5-5.1); RBC 3.91 mil/uL (4.20-5.00); RDW 20.5 % (10.5-14.5)
[2019-10-26 19:33] LABS: CALCIUM 12.8 mg/dL (8.5-10.1)
[2019-10-26 19:57] LABS: ANISOCYTOSIS 2+; PLATELET ESTIMATE NORMAL
[2019-10-26 19:58] LABS: HYPOCHROMASIA 2+; MICROCYTES 2+
[2019-10-26 19:59] LABS: OVALOCYTES FEW; POIKILOCYTOSIS 1+
[2019-10-26 20:12] VITALS: BP 161/72
[2019-10-26] MEDS ORDERED: FEROSUL325 M1 PO (22:06)
[2019-10-26] MEDS ORDERED: LEVO-T100 MCG PO (22:08)
--- NOTE | 2019-10-26 23:13 | NUR ---
PT ON MONITOR AFIBB, PROVIDER CALLED EKG OBTAINED. PROVIDER NOTIFIED EKG RESULTS. PT NOT SYMPTOMATIC DENIES HX OF AFIBB.
--- NOTE | 2019-10-26 23:37 | NUR ---
PT ADMITTED FROM HOME TO ED. PTS DR HENLEY CALLED PT AND REQUESTED SHE COME TO ED TO BE ADMITTED RE ELEVATED CALCIUM. PT HAD APPOINTMENT FOR AM TRANSFUSION OF BLOOD. PT A0X4, FORGETFUL, DAUGHTER DPOA PRESENT IN ED BUT WENT HOME. PT REPORTS ONLY SYMPTOMS TODAY WERE ITCHY AND BLURRY EYES, PT WAS RESISTIVE TO REACTION TO LIGHT EXAM. PT WEARS GLASSES, HAS TOP DENTURES. PT BROUGHT IN HOME MEDS AND ASKED TO SEND HOME. PT WAS NOT SURE IF SHE WAS STILL TAKING CIPRO AND FLAGYL. WHEN PT PLACED ON MONITOR AFIBB PRESENT, PROVIDER NOTIFIED, EKG OBTAINED, PT CURRENTLY SR. IVF INTACT. PT VERBALIZED TO CALL FR ASSISTANCE, ALARM ON. PT VERBALIZED POOR APPETITE AND DECREASED MEAL INTAKE. PT DID NOT MENTION HX OF LUNG CANCER IN ADMISSION. NO C/O PAIN, PT REQUESTING TO SLEEP.
[2019-10-27 03:25] LABS: HEMOGLOBIN 7.8 gm/dL (12.0-15.0); MCH 21.3 pg (26.0-34.0); MCHC 31.1 g/dL (28.0-37.0); MCV 68.3 fL (80.0-100.0); RBC 3.66 mil/uL (4.20-5.00); RDW 20.8 % (10.5-14.5); WBC 7.9 thou/uL (4.0-11.0)
[2019-10-27 03:37] LABS: POTASSIUM 3.3 mmol/L (3.5-5.1)
[2019-10-27 04:49] VITALS: BP 179/80
[2019-10-27 07:41] VITALS: BP 182/77
--- NOTE | 2019-10-27 09:45 | EKG ---
[facility] [place] [address] ELECTROCARDIOGRAM REPORT Name: HENRY ROMERO Room #: 360-P ADM IN M.R.#: [id number] Admission: 10/26/19 Attend Phys: Carlos Genao MD Discharge: Date of : 38 Report #: [id number] THIS REPORT FOR: cc: Brennen Madrigal MD, Rene P. MD Lundgren,Eric Patterson MD [facility] ~ THIS REPORT FOR: //name// [facility] Test Date: 2019-10-26 Test Time: 23:03:30 Pat Name: HENRY ROMERO Department: Room: 360 P Gender: F Exec. Creative Director: [id number] : 1940 Requested By: Vannessa Goins Order Number: [id number] MD: Eric Ly Measurements Intervals [place] Rate: 80 P: 0 MO: 66 QRS: 31 QRSD: 82 T: -17 QT: 368 QTc: 425 Interpretive Statements Sinus rhythm No significant abnormality Artifact in lead(s) I,II,III,aVR,aVL,aVF No previous ECGs available for comparison Electronically Signed On 10-27-2019 9:44:03 CLAY ARTIST by Eric Ly [email or web address] <ELECTRONICALLY SIGNED> By: Eric Ly MD, FAC 10/27/19 0944 230 230 Eric Ly MD, FAC /EPI
--- NOTE | 2019-10-27 09:45 | EKG ---
[facility] [place] [address] ELECTROCARDIOGRAM REPORT Name: HENRY ROMERO Room #: 360-P ADM IN M.R.#: [id number] Admission: 10/26/19 Attend Phys: Carlos Genao MD Discharge: Date of : 38 Report #: [id number] THIS REPORT FOR: cc: Brennen Madrigal MD, Rene P. MD Lundgren,Eric Patterson MD [facility] ~ THIS REPORT FOR: //name// [facility] Test Date: 2019-10-26 Test Time: 23:04:19 Pat Name: HENRY ROMERO Department: Room: 360 P Gender: F Senior Analyst: [id number] : 1940 Requested By: Carlos Genao Order Number: [id number] MD: Eric Ly Measurements Intervals [place] Rate: 78 P: [place]: QRS: 24 QRSD: 86 T: 24 QT: 378 QTc: 431 Interpretive Statements Sinus rhythm Artifact in lead(s) I,II,III,aVR,aVL,aVF,V1,V2,V3,V5,V6 Compared to ECG 09/15/2019 22:14:51 no significant change was found Electronically Signed On 10-27-2019 9:44:41 COUNSELING CENTER MANAGER by Eric Ly [email or web address] <ELECTRONICALLY SIGNED> By: Eric Ly MD, [facility] 10/27/19 0944 2304 230 Eric Ly MD, [facility] /EPI
--- NOTE | 2019-10-27 15:11 | NUR ---
DISCHARGE PLANNING. CALL RECEIVED FROM [facility]. PER ANN, SHE HAS BEEN FOLLOWING PATIENT FOR ADMISSION TO [facility]. ANN STATES PATIENT AND FAMILY WOULD LIKE PATIENT TO DISCHARGE TO [facility] ONCE MEDICALLY READY AND THEN TRANSITION INTO [facility]. PATIENT REFERRAL FAXED TO ANN PER REQUEST. CALL PLACED TO ANN TO NOTIFY. UNIT SW AWARE. FOLLOWING.
[2019-10-27 15:54] VITALS: BP 152/70
[2019-10-27 16:57] VITALS: BP 174/80; BP 178/85
--- NOTE | 2019-10-27 16:57 | NUR ---
Spoke with patient who reports she plans to dc to [facility] for therapy. Attempted to call family left message to call casemgt to confirm.
--- NOTE | 2019-10-27 17:58 | NUR ---
spoke with josué Causey plan is for rehab at [facility]. patient rec HH services with [facility]. SW from [facility] called SW at hospital to alert they are working on placement. Reviewed with Marium sauceda to assist with goal of rehab at [facility]. Patient to work with therapy and [facility] to [place].
--- NOTE | 2019-10-27 19:07 | NUR ---
Assumed care approx. 0700 this AM. Pt ALOx4. Scheduled blood transfusion ordered yesterday. Pt signed own consent. Blood transfusion infusing into shift change. Night RN to monitor. Pt tolerating infusion well up to this point. Female external cath added to care per patient request. Pt up to bedside commode frequently before purewick placement. IV team placed 20 G left upper arm peripheral IV for blood transfusion. No major acute changes noted today. Pt slightly progressing toward plan of care goals at this time.
[2019-10-27 20:36] VITALS: BP 178/85
--- NOTE | 2019-10-27 21:08 | NUR ---
PT RESTING IN BED WATCHING TV, UPON ARRIVAL TO SHIFT BLOOD TRANSFUSION STILL RUNNING. NOW IVF INTACT. PT A0X4, CALLS VERBALLY OUT FOR ASSISTANCE. BED ALARM ON. PT REPETITIVELY SAYS OWIE, BUT DENIES WANTING PAIN MEDS, PT REPORTED HER STERNUM HURT AND TELE STICKER MOVED. PT LATER REPORTED HER BACK HURTS FROM THE BED AND REPOSITIONED WITH PILLOWS. PT DID TAKE PAIN PRN PILL AFTER CONTINUED REPORTS OF BACK PAIN. PT ASSISTED WITH FLUIDS, DECLINED SNACK. FEMALE EXT CATHETER IN PLACE. PT REPORTS WANTING TO SLEEP TONIGHT AND GO HOME IN THE AM.
[2019-10-27 22:37] VITALS: BP 130/80
--- NOTE | 2019-10-28 01:04 | NUR ---
PT USING BSC VERSUS FEMALE EXT CATHETER PT REQUEST SINCE CATHETER WAS LEAKING.
[2019-10-28 04:24] VITALS: BP 176/83
[2019-10-28 06:06] LABS: CALCIUM 10.9 mg/dL (8.5-10.1); CREATININE 0.8 mg/dL (0.6-1.0); PHOSPHORUS 1.8 mg/dL (2.5-4.9)
[2019-10-28 06:11] LABS: POTASSIUM 2.7 mmol/L (3.5-5.1)
--- NOTE | 2019-10-28 06:34 | NUR ---
PROVIDER LEFT VOICEMAIL RE POTASSIUM 3.4. WILL HAVE DAY SHIFT F/U WITH
[2019-10-28 07:41] VITALS: BP 183/90
[2019-10-28 15:46] VITALS: BP 139/73
--- NOTE | 2019-10-28 18:30 | NUR ---
PT ASSESSED AT START OF SHIFT. C/O RLQ ABD PAIN AND TAKES PERCOCET WHICH HELPS. APPETITE IS POOR AND DTRS CALL PT TO ENC HER EATING. EXT FEMALE CATHETER IN PLACE FOR SHIFT W GOOD OUTPUT. ORAL AND IV POTASSIUM GIVEN. IV INFILTRATED AT ONE POINT AND HAD TO WAIT TO GET NEW IV ACCESS AFTER SEVERAL ATTEMPTS. TELE SR, AFIB AND FIRST DEGREE AVB THROUGHOUT SHIFT.
[2019-10-28 19:51] VITALS: BP 144/78
--- NOTE | 2019-10-29 03:53 | NUR ---
Patient making slow progress towards outcome goals. Vital signs and rhythm stable. Chronic low back pain, Percocet given with relief. Patient very emaciated. Tailbone sore, skin intact, protective barrier ointment pplied and turned to sides. Tearful at times asking "why me?" but declined to elaborate. Poor oral intake. IVfluids infusing. Incontinent of bladder, female external catheter in place, leaking at times due to patients anatomy. Good urine output.
[2019-10-29 04:33] VITALS: BP 138/78
[2019-10-29 05:00] VITALS: BP 134/78
[2019-10-29 05:34] LABS: CALCIUM 9.8 mg/dL (8.5-10.1); CREATININE 0.9 mg/dL (0.6-1.0); MAGNESIUM 2.4 mg/dL (1.8-2.4)
[2019-10-29 05:37] LABS: POTASSIUM 4.2 mmol/L (3.5-5.1)
[2019-10-29 07:20] VITALS: BP 151/63
[2019-10-29 15:13] VITALS: BP 149/76
--- NOTE | 2019-10-29 15:36 | NUR ---
pt is A&OX3, but pt is very weak, pt's vs are stable, pt's lab results have improved, we encurage pt to eat more at meal times, has order to DC pt to home / , RN has called to report pt is too weak and she cannot take care self at home, MAURICIO has dicussed with pt's family to plan pt DC to SNF soon, pt denies pain and sob at this time.
--- NOTE | 2019-10-29 16:27 | HC ---
[facility] [place] [address] CONSULTATION Name: HENRY ROMERO Room #: 360-P ADM IN M.R.#: [id number] Admission: 10/26/19 Attend Phys: Carlos Genao MD Discharge: Date of : 38 Report #: [id number] THIS REPORT FOR: cc: Brennen Madrigal MD, Rene P. MD McKittrick, Richard James MD ~ CC: Oskar Madrigal MD REASON FOR CONSULTATION: History of lung cancer, squamous cell carcinoma. 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 She may have seen Dr. Dexter but because of hypercalcemia, she is not able to give us much clear information. We will send copies of the notes to my chart. She had hypercalcemia last admit and she came in after being told that she had a high calcium as an outpatient, came to [employer] for evaluation. Calcium was 12.8 yesterday, is 12 today. At the same time, her BUN is 24, creatinine 1.1. Hemoglobin was 8.2, is now 7.8; platelets and white count are acceptable. The patient is not the best historian today. It sounds like, she denies recent fevers, chills, nausea, vomiting, has not been eating well. She does note that she has lost weight. Does also feel that she has chronic back pain. Does feel that she has had a bit of swelling in her ankles. PAST MEDICAL HISTORY: Notable for recent diagnosis of squamous cell lung cancer, I presume it is stage 4, but we do not have the PET scan that was done as an outpatient. Also, history of iron deficiency, history of GI bleed in the past, history of hypertension, history of, I believe, chronic back pain; also, hyperlipidemia, also I believe there may be a history of some mood disorder, and back spasms. 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 She also has a history of GI bleed in the past, history of pneumothorax, history of appendectomy, vertebroplasty, hysterectomy, hypothyroidism, osteoarthritis, and also gout. CURRENT MEDICATIONS: At this time in the hospital include nortriptyline 25 at bedtime, atenolol 50 daily, vitamin E 400 units daily, ascorbic acid 500 mg daily, folic acid 800 mcg daily, levothyroxine 88 mcg daily, amlodipine 10 mg daily, iron sulfate 325 mg daily, oxycodone p.r.n., Xanax 0.5 mg at bedtime, [address] [address] CONSULTATION Name: HENRY ROMERO Room #: 360-P ADM IN M.R.#: [id number] Admission: 10/26/19 Attend Phys: Carlos Genao MD Discharge: Date of : 38 Report #: [id number] Tylenol p.r.n. She is also receiving IV fluids. RADIOLOGIC STUDIES: None done recently. PHYSICAL EXAMINATION: GENERAL: The patient appears her stated age. She is an elderly -Slov[place] female, in a medical bed. VITAL SIGNS: Height is 4 feet 9 inches, 144.8 cm. Weight is 100.9 pounds or 45.8 kilograms. Blood pressure 182/77, O2 sat 92%, respirations 16, pulse 80, temperature afebrile at 98.0. MOOD: She is pleasant and awake. She seems to be fuzzy on details, is moving arms and legs. No enlarged lymph nodes. HEENT: Oropharynx clear. She has a dental plate on top in place. No petechiae or ecchymosis or ulcerations. ABDOMEN: Scaphoid without masses. EXTREMITIES: Without clubbing, cyanosis. There is some trace edema in her ankles. LYMPHATICS: No enlarged lymph nodes in the cervical or supraclavicular region. ASSESSMENT AND PLAN: 1. Squamous cell carcinoma with bilateral lung masses. We will get outpatient PET, I presume, the patient is stage 4, but not clear to this person at this time. We will get those records, not sure what discussion doctor had with the patient. Also, not sure if she has PD-L1 expressing. 2. Hypercalcemia, receiving hydration. We will also plan to give 60 mg 1 time and follow serial calcium levels. 3. Anemia did receive IV iron times, I think, 3 doses back in August. Continue following serial hemoglobins. 4. Coronary artery disease per others. 5. Hypertension per others. 6. Hyperlipidemia per others. 7. Hypothyroid per others. 8. I think history of gout per others. 9. Mood disorder, meds per others, will be available and follow with you. <ELECTRONICALLY SIGNED> By: Matt Benavides MD 10/29/19 1627 [id number] 09 Matt Benavides MD /daya
[2019-10-29 20:50] VITALS: BP 137/62
--- NOTE | 2019-10-29 23:47 | NUR ---
Orders received to change patient admission status to med-surg. Report given. Transfered to room 435 per bed.
--- NOTE | 2019-10-30 01:09 | NUR ---
PT TRANSFERRED FROM [facility] VIA BED. IV INTACT AND FLIUDS INFUISING.FEMALE EXT CATH IN PLACE. PT WEAK AND NEEDS FREQ REPOSITIONING. PT ORIENTED TO ROOM. FALL PREQ IN PLACE AND CALL LIGHT IN REACH WILL CONT WITH POC TILL EOS.
[2019-10-30 04:19] VITALS: BP 127/59
[2019-10-30 06:59] LABS: CALCIUM 8.6 mg/dL (8.5-10.1); CREATININE 0.8 mg/dL (0.6-1.0); POTASSIUM 3.4 mmol/L (3.5-5.1)
[2019-10-30 07:30] VITALS: BP 154/64
--- NOTE | 2019-10-30 13:38 | NUR ---
CARE TEAM INDICATED THAT PT IS MEDICALLY STABLE TO DC TO SKILLED THIS DAY. CM NOTIFIED LIAISON AT [facility] AND THEY SUBMITTED FOR INSURANCE AUTH. CM TO FOLLOW INDICATED WITH DC PLANNING.
[2019-10-30 16:29] VITALS: BP 136/37
--- NOTE | 2019-10-30 18:24 | NUR ---
PT ALERT AND ORIENTED TIMES FOUR. VSS, IVF INFUSING PER ORDER. PT C/O PAIN PRN MEDICATIONS GIVEN WITH GOOD RELEIF. PT TOLERATES MEDS AND MEALS. PT UP TO CHAIR FOR SOME PART OF THE SHIFT TODAY. PT FAMILY AT BEDSIDE THIS EVENING. PT PROGRESSING TOWARDS POC GOALS.
[2019-10-30 19:15] VITALS: BP 120/53
--- NOTE | 2019-10-31 03:43 | NUR ---
ASSUMED PT CARE AT 1900. PT HAS A VERY POSITIONAL IV, FLUSHES WELL BUT PUMP BEEPS FREQUENTLY THEREFORE FLUIDS ARE FAR BEHIND. BACK PAIN MANAGED WITH PRN MEDS. UP TO COMMODE WITH ASSIST, SMALL BM TONIGHT. AWAITING D/C TO REHAB POSSIBLY TOMORROW.
[2019-10-31 04:40] VITALS: BP 144/69
[2019-10-31 08:14] VITALS: BP 155/75
[2019-10-31 08:53] VITALS: BP 155/75
[2019-10-31 11:03] LABS: ALBUMIN 1.8 g/dL (3.4-5.0); CALCIUM 8.3 mg/dL (8.5-10.1); CREATININE 0.9 mg/dL (0.6-1.0); TOTAL BILIRUBIN 0.4 mg/dL (<0.1-1.0); TOTAL PROTEIN 5.8 g/dL (6.4-8.2)
--- NOTE | 2019-10-31 12:36 | NUR ---
Assumed care of pt at 0700. Pt a&ox4. Pt feeling weak this am. C/o in right flank. Prn pain meds administered. Patient to be discharged to [facility] between 6350-1084. IVF infusing. Fall precautions in place. Will continue to monitor.
--- NOTE | 2019-10-31 13:35 | NUR ---
PT DISCHARGING BACK TO [facility] FOR SKILLED STAY FAXED DC ORDERS/SUMMARY TO FACILITY SPOKE WITH ANN IN ADM SHE RECEIVED DC ORDERS AND ARRANGED TRANSPORT BY [facility] FOR [phone] TODAY. NOTIFIED PT'S RICARDO SAUCEDA) OF DC AND TIME OF TRANSPORT. UNIT NOTIFIED AND CHART COPY PER US. RN TO CALL REPORT TO [phone].
--- NOTE | 2019-10-31 14:17 | NUR ---
AUTH WAS RECIEVED FOR PT TO GO TO [facility] THIS DAY. CHART COPY ORDERED. ORDERS FAXED. NURSE CALLED AND PROVIDED REPORT. TRANSPORT ARRANGED FOR [phone]. PT'S DTR AND NIECE WERE NOTIFIED AND ARE AWARE AND AGREEABLE WITH DC. NO OTHER CM INTERVENTION INDICATED. CASE CLOSED.
[2019-10-31] MEDS ORDERED: PERCOCET PO (15:45)
== END 2019-10-31 16:22 | DRG 640 ==
LOC: ER 18:08 → EROBS 20:07 → 3W 20:07 → 4S 10-29 23:46
PROVIDERS: Emergency Medicine Emergency Medical Services; Hospitalist; Internal Medicine Hematology & Oncology; Nurse Practitioner Family; ADMIT Internal Medicine
PROC: 30233N1 Transfusion of Nonautologous Red Blood Cells into Peripheral Vein, Percutaneous Approach (ICD-10-PCS; principal; 2019-10-27)
DX: E83.52 Hypercalcemia (principal); E43 Unspecified severe protein-calorie malnutrition; C34.92 Malignant neoplasm of unspecified part of left bronchus or lung; K57.32 Diverticulitis of large intestine without perforation or abscess without bleeding; Z68.1 Body mass index [BMI] 19.9 or less, adult; C34.91 Malignant neoplasm of unspecified part of right bronchus or lung; I10 Essential (primary) hypertension; E78.5 Hyperlipidemia, unspecified; E03.9 Hypothyroidism, unspecified; M10.9 Gout, unspecified; M19.90 Unspecified osteoarthritis, unspecified site; K57.30 Diverticulosis of large intestine without perforation or abscess without bleeding; M54.9 Dorsalgia, unspecified; F39 Unspecified mood [affective] disorder; I25.10 Atherosclerotic heart disease of native coronary artery without angina pectoris; E87.6 Hypokalemia; G89.4 Chronic pain syndrome; R53.81 Other malaise; F41.9 Anxiety disorder, unspecified; F32.9 Major depressive disorder, single episode, unspecified; M81.0 Age-related osteoporosis without current pathological fracture; D50.9 Iron deficiency anemia, unspecified; K52.9 Noninfective gastroenteritis and colitis, unspecified; E83.42 Hypomagnesemia; Z95.820 Peripheral vascular angioplasty status with implants and grafts; Z90.49 Acquired absence of other specified parts of digestive tract; Z90.710 Acquired absence of both cervix and uterus; Z79.899 Other long term (current) drug therapy; Z88.8 Allergy status to other drugs, medicaments and biological substances; Z88.6 Allergy status to analgesic agent; Z88.1 Allergy status to other antibiotic agents; Z88.0 Allergy status to penicillin; Z91.040 Latex allergy status; Z91.81 History of falling; Z87.891 Personal history of nicotine dependence; Z95.5 Presence of coronary angioplasty implant and graft
CPT/HCPCS: 10195; 10879

== ENCOUNTER → 2019-11-10 | Outpatient (CLI) | payer OTHER ==
[~2019-11-10] MED LIST changes: +FEROSUL325 M1 PO; +LEVO-T100 MCG PO; +PERCOCET PO
--- NOTE | ~2019-11-10 | PFR/MVV ---
[facility] [place] [address] [address] PULMONARY FUNCTION MVV/REPORT Name: NICKSTELLAGERHARD BRAGA Room #: REG [facility]#: [id number] Admission: 11/10/19 Attend Phys: Oskar Arrington MD Discharge: Date of : 38 Report #: [id number] THIS REPORT FOR: //name// >> SPIROMETRY: (BTPS) Height: in cm Weight: lbs kg Exam Date: PRE-RX POST-RX PRED BEST %PRED BEST %PRED %CHG FVC LITERS . . . . . . FEV1 LITERS . . . . . . FEV1/FVC % . . . . . . BJK97-12% L/Sec . . . . . . PEF L/SEC . . . . . . FEF50/FIF50 UNITLESS . . . . . . MVV L/Min . . . f 1/Min . . . >> LUNG VOLUMES: (BTPS) PRE-RX POST-RX PRED AVG %PRED AVG %PRED %CHG VC Liters . . . . . . TLC Liters . . . . . . RV Liters . . . . . . RV/TLC % . . . . . . FRC PL Liters . . . . . . FRC N2 Liters . . . . . . ERV Liters . . . . . . IC Liters . . . . . . >> DIFFUSION: DLCO ml/Min/mmHg . . . . . . DL Alvaro ml/Min/mmHg . . . . . . DLCO/VA ml/Min/mmHg . . . . . . VA Liters . . . . . . COMMENTS: COMMENTS: >> RESISTANCE: [facility] [address] [place] [address] PULMONARY FUNCTION MVV/REPORT Name: NICKHENRY Room #: REG [facility]#: [id number] Admission: 11/10/19 Attend Phys: Oskar Arrington MD Discharge: Date of : 38 Report #: [id number] PRE-RX PRED AVG %PRED Raw Total cmH20/L/Sec . . . Raw Insp cmH20/L/Sec . . . Raw Exp cmH20/L/Sec . . . Raw cmH20/L/Sec . . . Gaw L/Sec/cmH20 . . . sRaw cmH20 Sec . . . sGaw l/cmH20 Sec . . . Vtq Liters . . . # = OUTSIDE 95% CONFIDENCE INTERVAL CALIBRATION: PRED: 3.00 ACTUAL: EXP 3.01 INSP 3.02 [facility]-OL06-04 [facility] N-1804-4 >> INTERPRETATION/IMPRESSION: CC: Oskar Zapatae Kaitlin SPIROMETRY: FEV1 is 1.16 liters (104%), FVC is 1.52 liters (86%), FEV1/FVC ratio 76%. Post-bronchodilator therapy with intermediate response, FEV1 increased to 1.28 liters (114%, 10% change). LUNG VOLUMES: Total lung vital capacity is 1.52 liters (86%). Diffusing capacity is 36%. IMPRESSION: Pulmonary function studies are consistent with a mild restrictive airflow defect with an intermediate response to bronchodilator therapy. Diffusing capacity is severely decreased. By: Tony Austin MD /nt
== END ==
LOC: PUL 11-06 13:10
DX: C34.31 Malignant neoplasm of lower lobe, right bronchus or lung (principal)

== ENCOUNTER 2019-11-13 11:46 | Emergency (ER) | payer OTHER ==
[~2019-11-13] VITALS: Ht 167.6 cm; Wt 63.5 kg
[2019-11-13 12:40] LABS: HEMATOCRIT 27.3 % (37.0-47.0); HEMOGLOBIN 7.8 gm/dL (12.0-15.0); MCH 22.7 pg (26.0-34.0); MCHC 28.8 g/dL (28.0-37.0); PLATELET COUNT 267 thou/uL (150-400); RBC 3.45 mil/uL (4.20-5.00); RDW 24.4 % (10.5-14.5); WBC 9.9 thou/uL (4.0-11.0)
[2019-11-13 12:42] LABS: BE(vivo) -21.3 mmol/L (-2 to +3); HCO3 9.4 mmol/L (22.0-26.0); PO2 374.9 mmHg (80.0-100.0); pH 6.938 (7.360-7.450); sO2 99.5 % (92.0-98.0)
[2019-11-13 12:58] LABS: ALBUMIN 1.5 g/dL (3.4-5.0); CALCIUM 9.6 mg/dL (8.5-10.1); CREATININE 2.6 mg/dL (0.6-1.0); MAGNESIUM 2.2 mg/dL (1.8-2.4); TOTAL BILIRUBIN 0.7 mg/dL (<0.1-1.0); TOTAL PROTEIN 5.9 g/dL (6.4-8.2)
[2019-11-13 12:59] LABS: AMP/METHAMP Negative (Negative); BARBITURATES Negative (Negative); BENZODIAZEPINES POSITIVE (Negative); COCAINE Negative (Negative); METHADONE Negative (Negative); OPIATES Negative (Negative); PCP Negative (Negative)
[2019-11-13 13:01] LABS: POTASSIUM 6.8 mmol/L (3.5-5.1); TROPONIN-I 0.95 ng/mL (<0.06)
[2019-11-13 13:19] LABS: ABSOLUTE NEUTROPHILS 4.2 thou/uL (1.4-8.2); METAMYELOCYTES 4 %; POIKILOCYTOSIS 2+
[2019-11-13 13:20] LABS: ANISOCYTOSIS 2+; MICROCYTES 2+; PLATELET ESTIMATE NORMAL
[2019-11-13 14:09] VITALS: BP 0/0
--- NOTE | 2019-11-13 15:53 | EKG ---
[facility] [place] [address] ELECTROCARDIOGRAM REPORT Name: HENRY ROMERO Room #: REG [facility].#: [id number] Admission: 11/13/19 Attend Phys: Discharge: Date of : 38 Report #: [id number] THIS REPORT FOR: cc: Brennen Madrigal MD, Rene P. MD Lundgren,Eric Patterson MD MERGED WITH [facility] ~ THIS REPORT FOR: //name// [facility] ED Test Date: 2019-11-13 Test Time: 12:05:48 Pat Name: HENRY ROMERO Department: Room: Gender: F Body Art Technician: DEMETRIA : 1940 Requested By: Oskar Negron Order Number: [id number] MD: Eric Ly Measurements Intervals [place] Rate: 91 P: [place]: QRS: 30 QRSD: 143 T: QT: 403 QTc: 496 Interpretive Statements Atrial fibrillation Nonspecific intraventricular conduction delay Cannot rule out inferior injury pattern Compared to ECG 10/26/2019 23:04:19 ST and T wave abnormality is more pronounced Electronically Signed On 11-13-2019 15:52:17 CDT by Eric Ly [email or web address] <ELECTRONICALLY SIGNED> By: Eric Ly MD, MERGED WITH [facility] 11/13/19 1552 1205 1205 Eric Ly MD, MERGED WITH [facility] /EPI
== END 2019-11-13 14:09 ==
LOC: ER 11:46
PROVIDERS: Emergency Medicine
DX: I46.9 Cardiac arrest, cause unspecified (principal); E87.5 Hyperkalemia; E03.9 Hypothyroidism, unspecified; I12.9 Hypertensive chronic kidney disease with stage 1 through stage 4 chronic kidney disease, or unspecified chronic kidney disease; N18.9 Chronic kidney disease, unspecified; N17.9 Acute kidney failure, unspecified; I25.10 Atherosclerotic heart disease of native coronary artery without angina pectoris; R13.10 Dysphagia, unspecified; F41.9 Anxiety disorder, unspecified; F32.9 Major depressive disorder, single episode, unspecified; G89.4 Chronic pain syndrome; E78.5 Hyperlipidemia, unspecified; M19.90 Unspecified osteoarthritis, unspecified site; C34.90 Malignant neoplasm of unspecified part of unspecified bronchus or lung; Z98.890 Other specified postprocedural states; Z79.899 Other long term (current) drug therapy; Z88.8 Allergy status to other drugs, medicaments and biological substances; Z88.5 Allergy status to narcotic agent; Z88.1 Allergy status to other antibiotic agents; Z88.0 Allergy status to penicillin; Z91.040 Latex allergy status; Z87.891 Personal history of nicotine dependence